=== PATIENT | female | born 1950 | race Caucasian/White ===

== ENCOUNTER → 2017-02-25 | Outpatient (CLI) | payer BC ==
[~2017-02-25] VITALS: Ht 147.3 cm; Wt 109.3 kg
[~2017-02-25] MED LIST: ADDERALL 20 MG20 M1 PO; BIOTIN2500 MCG PO; COQ-10100 MG PO; CYMBALTA60 MG PO; DARIFENACIN ER15 MG PO; HYDROCODON-ACE1 EAC8 PO; IRON325 PO; KLOR-CON 1010 MEQ PO; LASIX 20 MG TAB20 MG PO; LEVOTHYROXINE100 MC1 PO; LODINE XL500 MG PO; MAXZIDE-25 MG1 EACH PO; MEDROXYPROGESTE10 MG PO; MINOCIN100 MG PO; MULTI VITAMIN1 EACH PO; NEURONTIN 300300 M1 PO; PANTOPRAZOLE SO40 MG PO; SILICA PO; TRILEPTAL150 MG PO; TYLENOL325 MG PO; VITAMIN B-12500 MCG PO; VITAMIN D3400 UNIT PO; ZONISAMIDE 100100 M1 PO
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
[2017-02-25 14:50] VITALS: BP 129/88
== END ==
LOC: PAIN 14:17
DX: M19.022 Primary osteoarthritis, left elbow (principal)

== ENCOUNTER → 2017-07-08 | Outpatient (CLI) | payer OTHER, BC ==
[~2017-07-08] VITALS: Ht 147.3 cm; Wt 110.2 kg
--- NOTE | ~2017-07-08 | HPC ---
[facility] [place] [address] PAIN MANAGEMENT CONSULTATION Name: JOLIE BALBUENA Room #: REG [facility].#: [id number] Admission: 07/08/17 Attend Phys: Dada Malik DO Discharge: Date of : 54 Report #: [id number] THIS REPORT FOR: //name// CC: aCrlos Malik DATE OF SERVICE: 07/08/2017 HISTORY OF PRESENT ILLNESS: The patient is a 67-year-old female, prior seen in consultation on 02/25/2017, diagnosed with chronic pain syndrome, left upper extremity neuropathic pain, component of axial back pain, morbid obesity, requiring complex medication management. The patient has had multiple trauma to the left elbow, ultimately had total elbow arthroplasty with subsequent trauma again prompting a revision and explantation of the prosthesis. She has limited range of motion of the shoulder. I did get x-rays at last visit of the shoulder proper, radiologist simply described "advanced degenerative changes of left elbow." The radial head and neck has been previously resected. There is an exaggerated articular defect, which the distal humerus articulates in the proximal ulna. There is an enlargement of the ulna-olecranon process with several large calcified chronic loose bodies. The patient returns to the pain clinic today. She notes pain in the left elbow, shoots down into the hand. Pain has been present since 1995. She describes as burning, aching, stabbing. Last visit, we had started the patient on Trileptal. She currently is taking 150 mg 1 in the morning, 2 at night. I had intended the patient to use this as a co-analgesic with gabapentin (she had prior been taking gabapentin 300 mg b.i.d. She did discontinue the latter. She returns to the pain clinic today noting pain is about a 4 on a VAS, exacerbated with activity. She had some massage and notes medication helps. Again, she rates pain a 4 on a VAS. PHYSICAL EXAMINATION GENERAL: Shows 67-year-old female, morbidly obese with a BMI of 50.8 kilograms per meter squared. VITAL SIGNS: Blood pressure is 146/76, pulse 94, respirations 16. NEUROLOGIC: Alert and oriented to person, place and time, judged to be a reasonable historian. MUSCULOSKELETAL: Right arm is essentially unremarkable. Left shoulder has adequate range of motion, significant limitation in range of motion to the left elbow, though she does have some degree of supination and pronation in the left forearm. No allodynia, hyperpathia is noted. Hand grasp is diminished on this side. [address] [address] PAIN MANAGEMENT CONSULTATION Name: JOLIE BALBUENA Room #: REG [facility].#: [id number] Admission: 07/08/17 Attend Phys: Dada Malik DO Discharge: Date of : 54 Report #: [id number] ASSESSMENT: Chronic pain syndrome of left upper extremity, neuropathic pain, component of axial back pain relatively quiescent at present, morbid obesity requiring complex medication management. RECOMMENDATION: Long discussion with the patient today about therapeutic options. Continue Trileptal 150 mg 3 a day. We will resume gabapentin 300 mg 3 a day with a gradual titration up. We will have the patient start 1 tablet at bedtime for 3 nights, 2 at night for 3 nights with a target dose of 1 in the morning and 2 at night. I had taken liberty of writing for both medications, 90-day prescriptions with 1 refill. I will see the patient back in 6 months or earlier if needed. Discharged in good and stable condition after a moderately prolonged visit was spent with the patient, greater than 25 minutes was spent reviewing medication issues, interval history. I did pull up the x-ray of the patient's left elbow and reviewed the anatomy with her. Again, we will follow up in 6 months for reevaluation. <ELECTRONICALLY SIGNED> By: Dada Malik DO 07/11/17 0816 [id number] Dada Malik DO /nt
[2017-07-08 11:17] VITALS: BP 146/76
== END ==
LOC: PAIN 03-18 13:41
DX: G89.4 Chronic pain syndrome (principal); M79.2 Neuralgia and neuritis, unspecified; M54.9 Dorsalgia, unspecified; E66.01 Morbid (severe) obesity due to excess calories; Z79.899 Other long term (current) drug therapy